=== PATIENT | male | born 1985 | race Caucasian/White ===

== ENCOUNTER 2024-04-05 05:39 | Emergency (ER) | payer OTHER, SELFPAY ==
[2024-04-05 05:39] VITALS: BMI 52.0
[2024-04-05 05:41] VITALS: BP 169/96
[2024-04-05 05:57] VITALS: BP 153/90
[2024-04-05] MEDS: DECADRON 10 MG PO (06:02)
--- NOTE | 2024-04-05 06:05 | ED.GENMED ---
History of Present Illness
General
Chief Complaint: Throat Problem
Time Seen by Provider: 04/05/24 05:53
History of Present Illness
History of Present Illness:
39-year-old male without significant past medical history presenting for throat pain. Patient reports symptoms started yesterday. Also reported subjective low-grade fever yesterday. [place] similar symptoms about a year ago, had strep pharyngitis.
Denies any difficulty breathing, reports pain with swallowing. Denies chest pain or difficulty handling secretions. Denies abdominal pain or GI symptoms. Denies any known sick contacts. Denies additional acute medical complaints.
Past History
Past History
ED Past Medical History: None
ED Past Surgical History: None
Social History
Tobacco: Non-smoker
Alcohol: None
Drug: None
Personal: Single
Phy Exam
Physical Exam
Physical Exam:
General: Well-appearing, no clinical signs of dehydration, nontoxic and in no acute distress
HEENT: protecting airway, bilateral tonsillar swelling with scant exudates. No swelling to the uvula. No trismus. Handling secretions without. No stridor
Neck: appears supple
CV: Normal heart rate, regular rhythm, no evidence of cyanosis
Resp: No accessory muscle use, no increased work of breathing
Abd: No distention
Extremities: No deformities
Neuro: alert, no focal neurologic deficit
: deferred
Rectal: deferred
Psych: Normal affect
Skin: Intact
Course
Orders/Labs/Results
Orders:
Orders
04/05/24 05:54
Rapid Strep Group A Urgent
DA Source: Throat/Pharynx
Specimen Description:
Date Specimen was Collected: 04/05/24
Time Specimen was Collected: 05:49
04/05/24 05:57
Dexamethasone Pf [Decadron] 10 mg PO NOW STA
04/05/24 06:33
Amoxicillin [Amoxil] 500 mg PO NOW STA
Vital Signs
Initial and Last Documented VS:
Initial Vital Signs
Temp Pulse Resp BP Pulse Ox
98.7 F 107 18 169/96 98
04/05/24 05:41 04/05/24 05:41 04/05/24 05:41 04/05/24 05:41 04/05/24 05:41
Last Documented Vital Signs
Temp Pulse Resp BP Pulse Ox
98.7 F 107 18 153/90 96
04/05/24 05:41 04/05/24 05:41 04/05/24 05:41 04/05/24 05:57 04/05/24 06:11
MDM/Problems Addressed
MDM/Problems Addressed:
39-year-old male without significant past medical history presenting for 2 days of throat pain. Vital signs are significant for mild tachycardia and hypertension.
On exam no acute distress, nontoxic. He is handling his secretions without difficulty, no stridor or wheezing on exam. Bilateral tonsillar swelling with exudates, tender cervical lymphadenopathy. Suspect strep pharyngitis. Lower suspicion for
peritonsillar abscess, or retropharyngeal abscess. Will send strep swab and treat with oral Decadron
06:30 -patient strep swab is positive, consistent with exam. Will start on amoxicillin. Otherwise feel stable for discharge. Strict return precautions communicated to patient who verbalized understanding
*Critical Care Note
Total Time (30-74mins, 75-104mins- exclusive of procedures): Not Applicable
ED Attending Note
-
Portions of this chart may have been created with voice recognition software.� Occasional wrong word or��sound alike� substitutions may have occurred due to the inherent limitations of voice recognition software.
Discharge Plan
Departure
Prescriptions:
No Action
No Current Medications
0
Interventions
Interventions:
*Risk Screen - Suicide Last Done: 04/05/24 05:41
*General Assessment Last Done: 04/05/24 05:41
*Neglect/Abuse Screening Last Done: 04/05/24 05:41
ED- Fall Risk Assessment Last Done: 04/05/24 05:41
*ED COVID-19 Vaccine History Last Done: 04/05/24 05:41
ED-EENT Assessment Last Done: 04/05/24 06:11
ED- Pulmonary Assessment Last Done: 04/05/24 06:11
Discharge Date and Time
Print Language: MAORI
[2024-04-05] MEDS: AMOXIL 500 MG PO (06:39)
== END 2024-04-05 06:45 | disposition home or self-care (01) ==
LOC: EMR 05:39
PROVIDERS: EMERGENCY PHYSICIAN Student in an Organized Health Care Education/Training Program
DX: J02.0 Streptococcal pharyngitis (principal); B95.5 Unspecified streptococcus as the cause of diseases classified elsewhere
CPT/HCPCS: 99283; 87070; 87147; 87880